=== PATIENT | male | born 1980 | race Caucasian/White ===

== ENCOUNTER 2018-01-22 12:21 | Emergency (ER) | payer SELFPAY ==
--- NOTE | 2018-01-22 12:27 | ER Report ---
History and Physical Time Seen By MD: 12:27 HPI/ROS CHIEF COMPLAINT: Back pain HISTORY OF PRESENT ILLNESS: This is a 37-year-old male who presents to the emergency department for low back pain. Patient states that morning he woke up with some left-sided back pain, has been progressively getting worse, has been taking [id number] medications to help with some discomfort however this has been unsuccessful. 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 States that he's been laying on the floor with his feet elevated to try to help with the discomfort. No loss of bowel or bladder. No urinary retention. No recent fevers or chills. No nausea or vomiting. No other complaints. REVIEW OF SYSTEMS: Respiratory: No cough, no dyspnea. Cardiovascular: No chest pain, no palpitations. Gastrointestinal: No vomiting, no abdominal pain. Musculoskeletal: As above. Allergies: Coded Allergies: No Known Drug Allergies (Unverified , 01/22/18) Home Meds Active Scripts Ketorolac Tromethamine (KETOROLAC TROMETHAMINE) 10 Mg Tab, 10 MG PO Q6H, #20 TAB 0 Refills Prov:MICHAEL TO [facility]- 01/22/18 Cyclobenzaprine Hcl (CYCLOBENZAPRINE HCL) 10 Mg Tablet, 5-10 MG PO TID PRN for MUSCLE SPASMS, #9 TAB 0 Refills Prov:MICHAEL TO [facility]- 01/22/18 Reported Medications Ibuprofen (IBUPROFEN) 200 Mg Capsule, 2 CAP PO Q6H, CAPSULE 01/22/18 Past Medical/Surgical History The patient has no significant past medical or surgical history. Reviewed Nurses Notes: Yes Constitutional Vital Sign - Last 24 Hours 01/22/18 01/22/18 01/22/18 01/22/18 12:25 12:28 12:51 13:21 Pulse 88 89 71 Resp 20 B/P (MAP) 136/95 136/95 (109) Pulse Ox 94 96 93 O2 Delivery Room Air Physical Exam General Appearance: The patient is alert, has no immediate need for airway protection and no current signs of toxicity. Eyes: Pupils equal and round no injection. Respiratory: Chest is non tender, lungs are clear to auscultation. Cardiac: regular rate and rhythm. Gastrointestinal: Abdomen is soft and non tender, no masses, bowel sounds normal. Musculoskeletal: Neck: Neck is supple and non tender. Left sided low back pain with firm palpation, no bruising, no deformities or subluxations no crepitus, in creased low back pain with straight leg raise, left greater than right. Extremities have full range of motion and are non tender. Skin: No rashes or lesions. DIFFERENTIAL DIAGNOSIS: After history and physical exam differential diagnosis was considered for back pain including but not limited to muscular pain, herniated disc, spine fracture, intra-abdominal causes and urinary tract infection. Medical Decision Making Data Points Laboratory Hematology Test 01/22/18 12:30 Urine Color Yellow Urine Clarity Slightly-cloudy Urine pH 6.0 pH (4.8-9.5) Urine Specific [place] 1.021 Urine Protein Negative mg/dL (NEGATIVE) Urine Glucose (UA) Negative mg/dL (NEGATIVE) Urine Ketones Negative mg/dL (NEGATIVE) Urine Blood Negative (NEGATIVE) Urine Nitrite Negative (NEGATIVE) Urine Bilirubin Negative (NEGATIVE) Urine Urobilinogen 2.0 mg/dL (0.2-1.9) Urine Leukocyte Esterase Negative (NEGATIVE) Urine RBC None /HPF (0-2/HPF) Urine WBC <1 /HPF (0-5/HPF) Urine Squamous Epithelial Cells None /LPF (</=FEW) Urine Renal Epithelial Cells Few /LPF (NONE-FEW) Urine Bacteria Negative /HPF (NONE-FEW) Urine Mucus None /HPF (NONE-FEW) Chemistry Test 01/22/18 12:30 Urine Color Yellow Urine Clarity Slightly-cloudy Urine pH 6.0 pH (4.8-9.5) Urine Specific [place] 1.021 Urine Protein Negative mg/dL (NEGATIVE) Urine Glucose (UA) Negative mg/dL (NEGATIVE) Urine Ketones Negative mg/dL (NEGATIVE) Urine Blood Negative (NEGATIVE) Urine Nitrite Negative (NEGATIVE) Urine Bilirubin Negative (NEGATIVE) Urine Urobilinogen 2.0 mg/dL (0.2-1.9) Urine Leukocyte Esterase Negative (NEGATIVE) Urine RBC None /HPF (0-2/HPF) Urine WBC <1 /HPF (0-5/HPF) Urine Squamous Epithelial Cells None /LPF (</=FEW) Urine Renal Epithelial Cells Few /LPF (NONE-FEW) Urine Bacteria Negative /HPF (NONE-FEW) Urine Mucus None /HPF (NONE-FEW) Urinalysis Test 01/22/18 12:30 Urine Color Yellow Urine Clarity Slightly-cloudy Urine pH 6.0 pH (4.8-9.5) Urine Specific [place] 1.021 Urine Protein Negative mg/dL (NEGATIVE) Urine Glucose (UA) Negative mg/dL (NEGATIVE) Urine Ketones Negative mg/dL (NEGATIVE) Urine Blood Negative (NEGATIVE) Urine Nitrite Negative (NEGATIVE) Urine Bilirubin Negative (NEGATIVE) Urine Urobilinogen 2.0 mg/dL (0.2-1.9) Urine Leukocyte Esterase Negative (NEGATIVE) Urine RBC None /HPF (0-2/HPF) Urine WBC <1 /HPF (0-5/HPF) Urine Squamous Epithelial Cells None /LPF (</=FEW) Urine Renal Epithelial Cells Few /LPF (NONE-FEW) Urine Bacteria Negative /HPF (NONE-FEW) Urine Mucus None /HPF (NONE-FEW) ED Course/Re-evaluation ED Course The patient was admitted to a room. A history and physical were obtained. Differential diagnoses were considered. A UA was collected which was negative. 60 mg IM Norflex and 60 mg IM Toradol were given. Patient did have relief with the medications. The patient denied discussed imaging, as there was no injury elected not to image the spine. Patient was agreeable to this. Patient was given a prescription for Toradol and Flexeril. Patient was also sent home with a note for work as well as a note for physical therapy. I did talk to the patient at length about utilizing physical therapy, patient states he'll try this. He had no other questions or concerns at this time and discharged home. Return to the ER for any concerns or worsening symptoms. Decision to Disposition Date: Jan 22, 2018 Decision to Disposition Time: 13:31 Depart Departure Latest Vital Signs Vital Signs Date Time Temp Pulse Resp B/P (MAP) Pulse Ox O2 Delivery O2 Flow Rate FiO2 01/22/18 13:21 71 93 01/22/18 12:28 136/95 (109) 01/22/18 12:25 20 Room Air Impression: Primary Impression: Low back pain Condition: Improved Disposition: HOME OR SELF-CARE New Scripts Ketorolac Tromethamine (KETOROLAC TROMETHAMINE) 10 Mg Tab 10 MG PO Q6H, #20 TAB 0 Refills Prov: MICHAEL TO [employer] 01/22/18 Cyclobenzaprine Hcl (CYCLOBENZAPRINE HCL) 10 Mg Tablet 5-10 MG PO TID PRN for MUSCLE SPASMS, #9 TAB 0 Refills Prov: ZULEIKAMICHAEL ANDREW 01/22/18 Patient Instructions: Acute Low Back Pain (ED) Additional Instructions: Take the medications as prescribed. I do recommend following up with physical therapy for your back pain. If you're taking the Toradol for the back pain do not take ibuprofen at the same time, you can take acetaminophen or Tylenol, 500-1000mg every 8 hours as needed. Drink plenty of water. Get plenty of rest. Return to the emergency department for any other concerns or worsening symptoms. I also recommend following up and/or establishing with a primary care provider. Problem Qualifiers Primary Impression: Low back pain Chronicity: acute Back pain laterality: left Sciatica presence: without sciatica Qualified Codes: M54.5 - Low back pain MICHAEL TOP-BC Jan 22, 2018 12:27
[2018-01-22 12:28] VITALS: BP 136/95
[2018-01-22] MEDS ORDERED: IBUP-136 PO (12:32)
[2018-01-22] MEDS ORDERED: ORPHENADRINE 60MG/2ML INJ IM ONE (12:45)
[2018-01-22] MEDS ORDERED: KETOROLAC 60 MG/2 ML VIAL IM ONE (12:45)
[2018-01-22] MEDS ORDERED: CYCL10TA29 PO (13:17)
[2018-01-22] MEDS ORDERED: KET10 PO (13:17)
== END 2018-01-22 13:37 | disposition home or self-care (01) ==
LOC: ER 12:24
DX: M54.5 Low back pain (principal)
CPT/HCPCS: 81001; 96372; 99283; J1885; J2360

== ENCOUNTER → 2018-04-03 | Outpatient (CLI) | payer SELFPAY ==
[~2018-04-03] MED LIST: CYCL10TA29 PO; IBUP-136 PO; KET10 PO
== END ==
LOC: AMB 03:49
PROVIDERS: ATTEND Nurse Practitioner
DX: M79.604 Pain in right leg (principal); M21.861 Other specified acquired deformities of right lower leg; S01.01XA Laceration without foreign body of scalp, initial encounter; V48.5XXA Car driver injured in noncollision transport accident in traffic accident, initial encounter; Y92.411 Interstate highway as the place of occurrence of the external cause
CPT/HCPCS: A0425; A0427